=== PATIENT | male | born 1995 | race Caucasian/White ===

== ENCOUNTER 2018-07-27 03:14 | Emergency (ER) | payer OTHER ==
[2018-07-27] MEDS ORDERED: NORMAL SALINE 1000 ML 1,000 ML IV ONE (04:21)
--- NOTE | 2018-07-27 04:26 | ER Document Report ---
ED General - General Chief Complaint: ETOH Abuse Stated Complaint: ETOH Time Seen by Provider: 07/27/18 03:42 Primary Care Provider: [facility] [Provider Group] - Follow up as needed - HPI Notes: Patient is a 23-year-old male presents to the emergency department via EMS for alcohol intoxication. He states he had 6 liquor drinks and 4 shots of liquor. Patient states that he was alone while drinking. Patient denies recreational drug use. Patient states that his friend found him vomiting and then called EMS. Patient denies headache or nausea at this time. Patient denies significant past medical history or daily medication use. Past Medical History - General Information source: Patient - Social History Smoking Status: Unknown if Ever Smoked Frequency of alcohol use: Heavy Drug Abuse: None Lives with: Friend Family History: None Patient has suicidal ideation: No Patient has homicidal ideation: No - Past Medical History Cardiac Medical History: Reports: None Pulmonary Medical History: Reports: None EENT Medical History: Reports: None Neurological Medical History: Reports: None Endocrine Medical History: Reports: None Renal/ Medical History: Reports: None. Denies: Hx Peritoneal Dialysis Malignancy Medical History: Reports None GI Medical History: Reports: None Musculoskeletal Medical History: Reports None Skin Medical History: Reports None Psychiatric Medical History: Reports: None Traumatic Medical History: Reports: None Infectious Medical History: Reports: None Review of Systems - Review of Systems Constitutional: No symptoms reported EENT: No symptoms reported Cardiovascular: No symptoms reported Respiratory: No symptoms reported Gastrointestinal: See HPI Genitourinary: No symptoms reported Male Genitourinary: No symptoms reported Musculoskeletal: No symptoms reported Skin: No symptoms reported Hematologic/Lymphatic: No symptoms reported Neurological/Psychological: No symptoms reported Physical Exam - Vital signs Vitals: Resp Pulse Ox 16 97 07/27/18 03:23 07/27/18 03:23 - Notes Notes: GENERAL: Intoxicated, sedated HEAD: Atraumatic, normocephalic. EYES: Pupils equal round and reactive to light 5mm bilaterally, extraocular movements intact, sclera anicteric, conjunctiva are normal. ENT: Moist mucous membranes. NECK: Normal range of motion, supple without lymphadenopathy or JVD. LUNGS: Breath sounds clear to auscultation bilaterally and equal. No wheezes rales or rhonchi. HEART: Regular rate and rhythm without murmurs, rubs or gallops. ABDOMEN: Soft, nontender, normoactive bowel sounds. No guarding, no rebound. No masses appreciated. EXTREMITIES: Normal range of motion, no pitting or edema. No clubbing or cyanosis. SKIN: Warm, Dry, normal turgor, no rashes or lesions noted. Course - Re-evaluation Re-evalutation: 07/27/18 04:26 Patient is sleeping on stretcher and will intermittently open eyes and answer questions. 07/27/18 05:23 Patient was intermittently waking up, becoming more alert. Patient states that he is currently living with a friend who is the one who called EMS. States that he is going through a rough time but he was drinking to help him cope with stress and not an attempt to hurt himself. Patient denies pain or nausea at this time. IVF's infusing. Will continue to monitor. 07/27/18 07:19 Patient continues to sleep, will answer questions and drifts off to sleep mid conversation. Once patient more awake will attempt PO challenge and ambulate. i anticipate once patient is clinically sober he can be discharged. 07/27/18 07:59 Patient did awaken easily and ambulate to restroom with steady gait per the nurs e. Pt. reports urinating without difficulty. Patient is alert and oriented, speech clear, tolerating PO at this time. Pt. clinically sober. - Vital Signs Vital signs: Temp Pulse Resp BP Pulse Ox 97.8 F 14 113/72 97 07/27/18 04:03 07/27/18 07:01 07/27/18 07:01 07/27/18 07:01 - Laboratory Result Diagrams: 07/27/18 03:15 Laboratory results interpreted by me: 07/27/18 03:15 Potassium 3.5 L Glucose 112 H Discharge - Discharge Clinical Impression: Alcohol intoxication Qualifiers: Complication of substance-induced condition: with unspecified complication Qualified Code(s): F10.929 - Alcohol use, unspecified with intoxication, unspecified Vomiting Qualifiers: Vomiting type: unspecified Vomiting Intractability: non-intractable Nausea presence: with nausea Qualified Code(s): R11.2 - Nausea with vomiting, unspecified Condition: Stable Disposition: HOME, SELF-CARE Additional Instructions: You were seen in the emergency department today for being intoxicated. Being seen in the emergency department after drinking alcohol is a serious indicator that you have a problem with alcohol. You should seek help with the attached resources for your problem drinking. Please return to the emergency room immediately if you experience any concerning symptoms including high fevers, severe headache, chest pain, difficulty breathing, abdominal pain, slurred speech, numbness or weakness in your arms or legs, or any other symptom that concerns you. Referrals: [facility] [Provider Group] - Follow up as needed
[2018-07-27] MEDS ORDERED: ONDANSETRON HCL INJ/PF 4 MG/2 ML SDV IV ONE (04:29)
[2018-07-27 06:11] LABS: ANION GAP 13 (5-19); BLOOD UREA NITROGEN 13 mg/dL (7-20); CARBON DIOXIDE 24 mmol/L (22-30); CHLORIDE 107 mmol/L (98-107); GLUCOSE 112 mg/dL (75-110); POTASSIUM 3.5 mmol/L (3.6-5.0); SODIUM 144.4 mmol/L (137-145)
[2018-07-27 08:27] VITALS: BP 117/79
== END 2018-07-27 08:22 | disposition home or self-care (01) ==
LOC: ER 03:14
DX: F10.129 Alcohol abuse with intoxication, unspecified (principal); R11.2 Nausea with vomiting, unspecified
CPT/HCPCS: 99284; 96361; 96374; 36415; 80048; J2405; J7030